=== PATIENT | male | born 1950 | race Hispanic/Latino ===

== ENCOUNTER 2018-03-08 04:38 | Emergency (ER) | payer OTHER ==
[2018-03-08] MEDS ORDERED: Nitroglycerin 2% Ointment 1 INCH/1 GM Packet ONE (05:02)
[2018-03-08 05:20] LABS: #Eosinphils 0.3 thou/uL (0.0-0.7); #Lymphocytes 1.2 thou/uL (1.20-3.40); #Monocytes 0.6 thou/uL (0.11-0.59); #Neutrophils 5.2 thou/uL (1.40-6.50); %Basophils 0.5 % (0.0-1.0); %Eosinophils 4.3 % (0.0-10.0); %Lymphocytes 16.4 % (21.0-51.0); %Monocytes 8.1 % (0.0-10.0); %Neutrophils 70.7 % (42.0-75.0); Hemoglobin 14.8 g/dL (14.0-18.0); Mean Corpuscular HGB CONC 31.7 g/dL (32.0-36.0); Mean Corpuscular Hemoglobin 28.5 pg (27.0-31.0); Mean Corpuscular Volume 89.8 fL (78.0-98.0); Mean Platelet Volume 7.7 fL (7.4-10.4); Platelet Count 217 thou/uL (130-400); RBC Distribution Width 12.9 % (11.5-14.5); White Blood Cell (WBC) Count 7.3 thou/uL (4.8-10.8)
[2018-03-08 05:44] LABS: CKMB 2.9 ng/mL (0-6.6); Troponin I 0.273 ng/mL (< 0.028)
[2018-03-08 05:46] LABS: ALT (SGPT) 15 U/L (8-55); AST (SGOT) 15 U/L (5-34); Albumin 3.8 g/dL (3.4-4.8); Alkaline Phosphatase 105 U/L (40-150); Anion Gap 11 mmol/L (10-20); BUN (Urea Nitrogen) 16 mg/dL (8.4-25.7); Bilirubin, Total 0.5 mg/dL (0.2-1.2); CK (CPK) 58 U/L (30-200); Calc. Creatinine Clearance 0 mL/min (70-130); Calcium 9.2 mg/dL (7.8-10.44); Carbon Dioxide 28 mmol/L (23-31); Chloride 106 mmol/L (98-107); Estimated GFR-MDRD 76; Globulin 3.1 g/dL (2.4-3.5); Glucose 97 mg/dL (80-115); Potassium 4.8 mmol/L (3.5-5.1); Protein, Total 6.9 g/dL (5.8-8.1); Sodium 140 mmol/L (136-145)
[2018-03-08] MEDS ORDERED: Enoxaparin Sodium 100 MG/ML SYRINGE ONE (06:36)
[2018-03-08] MEDS ORDERED: Aspirin 325 MG TAB ONE (06:36)
--- NOTE | 2018-03-08 09:18 | RAD ---
FRONTAL VIEW CHEST: Date: 03/08/18 No prior comparison views. INDICATION: Chest pain. FINDINGS: There is accentuation of the cardiac silhouette. No lobar consolidation. Mild interstitial prominence is seen and there is prominence of the central pulmonary vasculature. Osseous degenerative change pr esent. IMPRESSION: Interstitial prominence which may relate to edema from CHF. Correlate clinically. Follow-up may be ob tained with dedicated 2 view chest. POS: [facility]
--- NOTE | 2018-03-12 13:45 | EKG ---
Test Reason : Blood Pressure : / mmHG Vent. Rate : 069 BPM Atrial Rate : 069 BPM P-R Int : 144 ms QRS Dur : 084 ms QT Int : 390 ms P-R-T Axes : 036 007 023 degrees QTc Int : 417 ms Normal sinus rhythm Inferior infarct , age undetermined Abnormal ECG Confirmed by JULIO CESAR ALVAREZ, CATHY Del Cid ([id number]), purchasing expeditor ASHLEY STEVENSON ([id number]) on 03/12/2018 1:45:05 PM Referred By: Confirmed By:CATHY HARRELL MD
== END 2018-03-08 08:39 | disposition short-term general hospital (02) ==
LOC: EEVIPCON 04:38 → ERS 04:38
DX: R07.9 Chest pain, unspecified (principal); I25.10 Atherosclerotic heart disease of native coronary artery without angina pectoris; I10 Essential (primary) hypertension; Z87.891 Personal history of nicotine dependence; Z79.899 Other long term (current) drug therapy; Z79.82 Long term (current) use of aspirin
CPT/HCPCS: 36415; 71045; 80053; 82550; 82553; 83880; 84484; 85025; 93005; 96372; J1650